=== PATIENT | female | born 1990 | race Caucasian/White ===

== ENCOUNTER 2018-03-14 09:15 | Inpatient (IN) | payer BC ==
--- NOTE | 2018-03-14 10:04 | HP ---
General Information - General Information Maternal Age: 27 Grav: 1 Para: 0 SAB: 0 IEA: 0 Estimated Due Date: 03/10/18 Determined By: Early Ultrasound Maternal Blood Type and Rh: O Positive - Results this Serology/RPR Result: Non-Reactive Rubella Result: Immune HBsAg Result: Negative HIV Result: Negative GBS Culture Result: Negative Past Medical History Delivery History: See Records Pertinent Past Medical History: Non-Contributory Pertinent Past Surgical History: None Pertinent Family History: Non-Contributory - Antepartal Records Antepartal Records: Reviewed, Uncomplicated Review of Systems Constitutional: Uncomfortable Gastrointestinal: No Nausea/Vomiting Genitourinary: No Leaking Fluid, Spotting Musculoskeletal: Contractions Neurological: No Headache Movement: Normal Exam Allergies/Adverse Reactions: Allergies sumatriptan [From Imitrex] Allergy (Verified 03/09/18 12:57) Anaphylatic Shock - Measurements Pre- Weight: 145 lb - Exam Breast: Breast Exam Deferred Extremities: Edema - +1 Heart: Normal Rhythm/Heart Sounds HEENT: No Significant Findings Lungs: Clear Bilaterally Rectal: Rectal Exam Deferred Reflexes: DTR 2+ Targeted Exam Findings Cervical Exam: 4cm Effacement: 100% Station: -1 Presenting Part: Vertex Membrane Status: Intact EFM Findings - External Monitor Findings Baseline Heart Rate: 130 External Monitor Findings: Accelerations Present, Variability Moderate Contractions: Regular - q5 Assessment/Plan - Assessment post term in labor - Plan Plan: Admit - Anticipate Vaginal Delivery
[2018-03-14] MEDS ORDERED: OBEPIDURAL* 250 ML EPIDURAL ONE (12:21)
[2018-03-14] MEDS ORDERED: Sodium Citrate/Citric Acid* 15 ML UDC PO PRN (13:01)
[2018-03-14] MEDS ORDERED: Phenylephrine IV* 40 MCG/ML 10 ML SYRINGE IV PUSH PRN ×2 (13:01)
[2018-03-14 13:04] LABS: Hematocrit 36 % (35-47); Hemoglobin 12.3 g/dl (12.0-16.0); Mean Corpuscular HGB Conc 34 g/dl (31-36); Mean Corpuscular Hemoglobin 31 pg (27-31); Mean Corpuscular Volume 91 fL (80-97); Mean Platelet Volume 8.8 um3 (7.4-10.4); Platelet Count 238 10^3/ul (150-450); Red Blood Count 3.97 10^6/ul (4.00-5.40); Red Cell Distribution Width 14 % (10.5-15); White Blood Count 14.8 10^3/ul (3.5-10.8)
[2018-03-14 13:23] LABS: ABS Basophils 0.1 10^3/ul (0-0.2); ABS Eosinophils 0 10^3/ul (0-0.6); ABS Lymphocytes 2.2 10^3/ul (1.0-4.8); ABS Monocytes 0.6 10^3/ul (0-0.8); ABS Neutrophils 11.9 10^3/ul (1.5-7.7); ABS Nucleated RBC 0 10^3/ul; Eosinophil % 0.3 % (0-6); Lymphocyte % 14.8 % (25-47); Nucleated Red Blood Cells % 0.1
[2018-03-14] MEDS ORDERED: Oxytocin in LR* 20 UNITS/1,000 ML BAG IVPB ONE (13:40)
[2018-03-14] MEDS ORDERED: Oxytocin in LR* 20 UNITS/1,000 ML BAG IVPB SCH ×2 (14:00→16:00)
[2018-03-14] MEDS ORDERED: OBEPIDURAL* 250 ML EPIDURAL SCH (14:00)
[2018-03-14] MEDS ORDERED: Dibucaine 1% 28.35 GM TUBE PR PRN (15:17)
[2018-03-14] MEDS ORDERED: Glycerin ADULT SUPP PR PRN (15:17)
--- NOTE | 2018-03-14 15:42 | PROCNOTE ---
[facility] OB: Delivery Note - Delivery A Date of : 03/14/18 Time of : 15:01 Weight at : 6 lb 10 oz Score 1 Minute: 8 Score 5 Minutes: 9 Gestational Age in Weeks and Days at Delivery: 40 Weeks and 4 Days Delivery Method: Spontaneous Vaginal Labor: Spontaneous Amniotic Fluid: Clear Estimated Blood Loss: 200 Anesthesia/Analgesia: CEI for Labor Delivered By: Hubert Velázquez - Nursery Level of Nursery: Regular/Bedside - Perineum Perineal Injury: 2nd Degree Perineal Repair: By Delivering Practioner - Events Delivery Events of Note: Pitocin During Labor - Additional Delivery Notes Additional Delivery Notes: pt pushed well with rare variable decelerations pushed x 25 minutes
[2018-03-14] MEDS ORDERED: Simethicone TAB* 80 MG TAB.CHEW PO SCH (17:30)
[2018-03-14] MEDS: Ibuprofen TAB* 600 MG PO PRN (18:17)
[2018-03-14] MEDS: Witch Hazel PAD* JAR TOPICAL PRN (18:19)
[2018-03-14] MEDS: Docusate CAP* 100 MG PO SCH (21:04)
[2018-03-14] MEDS: Acetaminophen TAB* 325 MG PO PRN (21:04)
[2018-03-15] MEDS: Acetaminophen TAB* 325 MG PO PRN ×3 (00:57→10:45)
[2018-03-15] MEDS: Ibuprofen TAB* 600 MG PO PRN ×3 (00:57→19:52)
[2018-03-15 06:35] LABS: Hematocrit 31 % (35-47); Hemoglobin 10.7 g/dl (12.0-16.0); Mean Corpuscular HGB Conc 35 g/dl (31-36); Mean Corpuscular Hemoglobin 31 pg (27-31); Mean Corpuscular Volume 90 fL (80-97); Mean Platelet Volume 8.3 um3 (7.4-10.4); Platelet Count 166 10^3/ul (150-450); Red Blood Count 3.43 10^6/ul (4.00-5.40); Red Cell Distribution Width 14 % (10.5-15); White Blood Count 15.1 10^3/ul (3.5-10.8)
[2018-03-15 08:22] LABS: ABS Basophils 0.1 10^3/ul (0-0.2); ABS Eosinophils 0.1 10^3/ul (0-0.6); ABS Lymphocytes 2.5 10^3/ul (1.0-4.8); ABS Monocytes 0.9 10^3/ul (0-0.8); ABS Neutrophils 11.5 10^3/ul (1.5-7.7); ABS Nucleated RBC 0 10^3/ul; Eosinophil % 0.8 % (0-6); Lymphocyte % 16.6 % (25-47); Nucleated Red Blood Cells % 0.1
[2018-03-15] MEDS ORDERED: Ferrous Gluconate TAB* 324 MG TAB PO SCH (09:00)
[2018-03-15] MEDS: Docusate CAP* 100 MG PO SCH ×3 (09:13→19:52)
[2018-03-15] MEDS: Witch Hazel PAD* JAR TOPICAL PRN (16:24)
[2018-03-16 07:43] VITALS: BP 118/70
== END 2018-03-16 10:29 | disposition home or self-care (01) | DRG 560 ==
LOC: MCHOBOUT 09:15 → MCHOB 09:56
PROVIDERS: ADMIT Obstetrics & Gynecology; ATTEND Obstetrics & Gynecology
PROC: 10E0XZZ Delivery of Products of Conception, External Approach (ICD-10-PCS; principal; 2018-03-14)
PROC: 4A1HXCZ Monitoring of Products of Conception, Cardiac Rate, External Approach (ICD-10-PCS; 2018-03-14)
PROC: 0KQM0ZZ Repair Perineum Muscle, Open Approach (ICD-10-PCS; 2018-03-14)
DX: O48.0 Post-term pregnancy (principal); O76 Abnormality in fetal heart rate and rhythm complicating labor and delivery; O70.1 Second degree perineal laceration during delivery; Z37.0 Single live birth; Z88.8 Allergy status to other drugs, medicaments and biological substances; Z3A.40 40 weeks gestation of pregnancy; Z23 Encounter for immunization
CPT/HCPCS: 36415; 85025; 86850; 86900; 86901; 90686; A9270-GY